=== PATIENT | male | born 1940 | race Caucasian/White ===

== ENCOUNTER 2016-11-25 00:25 | Outpatient (CLI) | payer MEDICARE, BC ==
[2016-11-25 08:07] LABS: ALT (SGPT) 6 U/L (8-55); AST (SGOT) 15 U/L (5-34); Albumin 3.8 g/dL (3.4-4.8); Alkaline Phosphatase 107 U/L (40-150); Anion Gap 14 mmol/L (10-20); BUN (Urea Nitrogen) 21 mg/dL (8.4-25.7); Bilirubin, Total 0.9 mg/dL (0.2-1.2); Calc. Creatinine Clearance 0 mL/min (70-130); Calcium 9.3 mg/dL (7.8-10.44); Carbon Dioxide 27 mmol/L (23-31); Chloride 98 mmol/L (98-107); Estimated GFR-MDRD 77; Globulin 2.2 g/dL (2.4-3.5); Glucose 77 mg/dL (83-110); Potassium 4.4 mmol/L (3.5-5.1); Sodium 135 mmol/L (136-145)
[2016-11-25 11:23] LABS: #Basophils 0.1 thou/uL (0.0-0.2); #Eosinphils 0.1 thou/uL (0.0-0.7); #Lymphocytes 1.8 thou/uL (1.20-3.40); #Neutrophils 5.5 thou/uL (1.40-6.50); %Basophils 0.8 % (0.0-1.0); %Eosinophils 1.2 % (0.0-10.0); %Monocytes 12.1 % (0.0-10.0); %Neutrophils 64.9 % (42.0-75.0); Hemoglobin 14.8 g/dL (14.0-18.0); Mean Corpuscular HGB CONC 36.3 g/dL (32.0-36.0); Mean Corpuscular Hemoglobin 34.8 pg (27.0-31.0); Mean Platelet Volume 5.8 fL (7.4-10.4); PLT Morphology Comment Appears Adequate; Platelet Count 187 thou/uL (130-400); RBC Distribution Width 12.1 % (11.5-14.5); RBC Morphology Normal; Red Blood Cell (RBC) Count 4.24 mill/uL (4.70-6.10); White Blood Cell (WBC) Count 8.4 thou/uL (4.8-10.8)
== END 2016-11-25 00:26 | disposition home or self-care (01) ==
LOC: BURMANOR 00:25 → EDSTATUS 21:12
PROVIDERS: ATTEND Clinical Nurse Specialist Medical-Surgical
DX: R55 Syncope and collapse (principal); I10 Essential (primary) hypertension
CPT/HCPCS: 36415; 80053; 85025

== ENCOUNTER 2016-12-16 15:26 | Inpatient (IN) | payer MEDICARE, BC, MEDICAID ==
[2016-12-16] MEDS ORDERED: Docusate (Surfak) 240 MG CAP PO PRN (21:58)
[2016-12-16] MEDS ORDERED: Acetaminophen 325 MG TAB PO PRN (21:58)
[2016-12-16] MEDS ORDERED: Ondansetron HCl/PF 4 MG/2 ML Vial IVPB PRN (21:58)
[2016-12-16] MEDS: Carbidopa/Levodopa CR 50-200 mg Tablet PO SCH (23:13)
[2016-12-17 05:14] LABS: Hemoglobin 13.4 g/dL (14.0-18.0); Platelet Count 186 thou/uL (130-400)
[2016-12-17 05:19] LABS: Calc. Creatinine Clearance 93 mL/min (70-130); Estimated GFR-MDRD Greater than 90
[2016-12-17] MEDS: Polyethylene Glycol 3350 17 GM Packet PO SCH (08:58)
[2016-12-17] MEDS: Enoxaparin Sodium 40 MG/0.4 ML SYRINGE SC SCH (08:58)
[2016-12-17] MEDS: Carbidopa/Levodopa CR 50-200 mg Tablet PO SCH ×4 (08:59→20:30)
[2016-12-17] MEDS: Furosemide 40 MG TAB PO SCH (08:59)
[2016-12-17] MEDS ORDERED: LEVODOPA PO SCH (09:00)
[2016-12-17] MEDS: Atorvastatin Calcium 10 MG TAB PO SCH (09:00)
[2016-12-17] MEDS ORDERED: CARBIDOPA PO SCH (09:00)
[2016-12-17] MEDS ORDERED: Ertapenem 1 GM VIAL IVPB SCH (09:00)
[2016-12-17] MEDS: rOPINIRole HCl 0.25 MG TAB PO SCH ×3 (09:00→20:16)
[2016-12-17] MEDS: Aspirin 81 mg Enteric Coated Tablet PO SCH (09:00)
[2016-12-17] MEDS ORDERED: Tamsulosin HCl 0.4 MG CAP PO SCH (09:00)
[2016-12-17] MEDS: Lisinopril 20 MG TAB PO SCH (09:01)
[2016-12-17] MEDS: Finasteride 5 MG TAB PO SCH (09:01)
[2016-12-17] MEDS: Ertapenem 1 GM in Sodium Chloride 0.9% 100 ML IVPB SCH (09:54)
[2016-12-17] MEDS: Nystatin Cream 15 GM TUBE TOP SCH ×2 (10:36→20:26)
[2016-12-17] MEDS: clonazePAM 0.5 MG TAB PO SCH (20:16)
[2016-12-17] MEDS ORDERED: clonazePAM 0.5 MG TAB PO SCH (21:00)
[2016-12-18] MEDS: Carbidopa/Levodopa CR 50-200 mg Tablet PO SCH ×5 (00:09→20:33)
[2016-12-18] MEDS: Enoxaparin Sodium 40 MG/0.4 ML SYRINGE SC SCH (08:53)
[2016-12-18] MEDS: Ertapenem 1 GM in Sodium Chloride 0.9% 100 ML IVPB SCH (08:53)
[2016-12-18] MEDS: Polyethylene Glycol 3350 17 GM Packet PO SCH (08:54)
[2016-12-18] MEDS: Lisinopril 20 MG TAB PO SCH (08:54)
[2016-12-18] MEDS: rOPINIRole HCl 0.25 MG TAB PO SCH ×3 (08:55→20:32)
[2016-12-18] MEDS: Atorvastatin Calcium 10 MG TAB PO SCH (08:56)
[2016-12-18] MEDS: Aspirin 81 mg Enteric Coated Tablet PO SCH (08:56)
[2016-12-18] MEDS: Finasteride 5 MG TAB PO SCH (08:56)
[2016-12-18] MEDS: Tamsulosin HCl 0.4 MG CAP PO SCH (08:56)
[2016-12-18] MEDS: Furosemide 40 MG TAB PO SCH (08:56)
[2016-12-18] MEDS: Nystatin Cream 15 GM TUBE TOP SCH ×2 (08:57→20:33)
[2016-12-18] MEDS ORDERED: Bisacodyl 10 MG SUPP PR PRN (12:29)
[2016-12-18] MEDS: clonazePAM 0.5 MG TAB PO SCH (20:32)
[2016-12-19] MEDS: Carbidopa/Levodopa CR 50-200 mg Tablet PO SCH ×6 (00:04→23:54)
[2016-12-19 05:16] LABS: Hemoglobin 12.9 g/dL (14.0-18.0); Platelet Count 175 thou/uL (130-400)
[2016-12-19] MEDS: Polyethylene Glycol 3350 17 GM Packet PO SCH (09:14)
[2016-12-19] MEDS: Enoxaparin Sodium 40 MG/0.4 ML SYRINGE SC SCH (09:14)
[2016-12-19] MEDS: Aspirin 81 mg Enteric Coated Tablet PO SCH (09:15)
[2016-12-19] MEDS: Tamsulosin HCl 0.4 MG CAP PO SCH (09:15)
[2016-12-19] MEDS: Furosemide 40 MG TAB PO SCH (09:15)
[2016-12-19] MEDS: Atorvastatin Calcium 10 MG TAB PO SCH (09:17)
[2016-12-19] MEDS: Finasteride 5 MG TAB PO SCH (09:17)
[2016-12-19] MEDS: rOPINIRole HCl 0.25 MG TAB PO SCH ×3 (09:17→20:09)
[2016-12-19] MEDS: Lisinopril 20 MG TAB PO SCH (09:17)
[2016-12-19] MEDS: Ertapenem 1 GM in Sodium Chloride 0.9% 100 ML IVPB SCH (09:18)
[2016-12-19] MEDS: Nystatin Cream 15 GM TUBE TOP SCH ×2 (09:19→20:08)
[2016-12-19] MEDS: clonazePAM 0.5 MG TAB PO SCH (20:08)
[2016-12-20] MEDS: Furosemide 40 MG TAB PO SCH (08:46)
[2016-12-20] MEDS: Carbidopa/Levodopa CR 50-200 mg Tablet PO SCH ×4 (08:46→21:17)
[2016-12-20] MEDS: Aspirin 81 mg Enteric Coated Tablet PO SCH (08:46)
[2016-12-20] MEDS: Tamsulosin HCl 0.4 MG CAP PO SCH (08:47)
[2016-12-20] MEDS: Atorvastatin Calcium 10 MG TAB PO SCH (08:47)
[2016-12-20] MEDS: Lisinopril 20 MG TAB PO SCH (08:48)
[2016-12-20] MEDS: Finasteride 5 MG TAB PO SCH (08:48)
[2016-12-20] MEDS: Enoxaparin Sodium 40 MG/0.4 ML SYRINGE SC SCH (08:49)
[2016-12-20] MEDS: rOPINIRole HCl 0.25 MG TAB PO SCH ×3 (08:49→21:17)
[2016-12-20] MEDS: Polyethylene Glycol 3350 17 GM Packet PO SCH (08:50)
[2016-12-20] MEDS: Ertapenem 1 GM in Sodium Chloride 0.9% 100 ML IVPB SCH (08:50)
[2016-12-20] MEDS: Nystatin Cream 15 GM TUBE TOP SCH ×2 (09:01→21:17)
[2016-12-20] MEDS: clonazePAM 0.5 MG TAB PO SCH (21:17)
[2016-12-21] MEDS: Carbidopa/Levodopa CR 50-200 mg Tablet PO SCH ×5 (00:51→20:22)
[2016-12-21 06:14] LABS: #Basophils 0.1 thou/uL (0.0-0.2); #Eosinphils 0.4 thou/uL (0.0-0.7); #Lymphocytes 1.7 thou/uL (1.20-3.40); #Monocytes 0.9 thou/uL (0.11-0.59); #Neutrophils 3.6 thou/uL (1.40-6.50); %Basophils 1.7 % (0.0-1.0); %Eosinophils 5.8 % (0.0-10.0); %Lymphocytes 25.5 % (21.0-51.0); %Monocytes 13.8 % (0.0-10.0); %Neutrophils 53.2 % (42.0-75.0); Hemoglobin 13.1 g/dL (14.0-18.0); Mean Corpuscular HGB CONC 33.9 g/dL (32.0-36.0); Mean Corpuscular Hemoglobin 32.6 pg (27.0-31.0); Mean Corpuscular Volume 96.2 fl (80.0-94.0); Mean Platelet Volume 5.6 fL (7.4-10.4); Platelet Count 181 thou/uL (130-400); RBC Distribution Width 12.1 % (11.5-14.5); Red Blood Cell (RBC) Count 4.03 mill/uL (4.70-6.10); White Blood Cell (WBC) Count 6.8 thou/uL (4.8-10.8)
[2016-12-21 06:22] LABS: ALT (SGPT) Less than 3 U/L (8-55); AST (SGOT) 11 U/L (5-34); Albumin 3.5 g/dL (3.4-4.8); Alkaline Phosphatase 165 U/L (40-150); Anion Gap 13 mmol/L (10-20); BUN (Urea Nitrogen) 26 mg/dL (8.4-25.7); Bilirubin, Total 0.6 mg/dL (0.2-1.2); Calc. Creatinine Clearance 70 mL/min (70-130); Calcium 9.1 mg/dL (7.8-10.44); Carbon Dioxide 25 mmol/L (23-31); Chloride 102 mmol/L (98-107); Estimated GFR-MDRD 68; Globulin 2.4 g/dL (2.4-3.5); Glucose 88 mg/dL (83-110); Potassium 4.2 mmol/L (3.5-5.1); Protein, Total 5.9 g/dL (5.8-8.1); Sodium 136 mmol/L (136-145)
[2016-12-21 06:35] VITALS: BMI 27.8
[2016-12-21] MEDS: Tamsulosin HCl 0.4 MG CAP PO SCH (08:51)
[2016-12-21] MEDS: Ertapenem 1 GM in Sodium Chloride 0.9% 100 ML IVPB SCH (08:51)
[2016-12-21] MEDS: Furosemide 40 MG TAB PO SCH (08:52)
[2016-12-21] MEDS: Aspirin 81 mg Enteric Coated Tablet PO SCH (08:52)
[2016-12-21] MEDS: Finasteride 5 MG TAB PO SCH (08:53)
[2016-12-21] MEDS: Lisinopril 20 MG TAB PO SCH (08:54)
[2016-12-21] MEDS: Atorvastatin Calcium 10 MG TAB PO SCH (08:54)
[2016-12-21] MEDS: Enoxaparin Sodium 40 MG/0.4 ML SYRINGE SC SCH (08:55)
[2016-12-21] MEDS: Polyethylene Glycol 3350 17 GM Packet PO SCH (08:55)
[2016-12-21] MEDS: Nystatin Cream 15 GM TUBE TOP SCH ×2 (09:02→20:23)
[2016-12-21] MEDS: rOPINIRole HCl 0.25 MG TAB PO SCH ×3 (09:34→20:22)
[2016-12-21] MEDS: Calcium Carbonate 500 MG ChewTAB PO PRN (20:22)
[2016-12-21] MEDS: clonazePAM 0.5 MG TAB PO SCH (20:22)
[2016-12-22] MEDS: Carbidopa/Levodopa CR 50-200 mg Tablet PO SCH ×5 (01:03→21:51)
[2016-12-22] MEDS: Calcium Carbonate 500 MG ChewTAB PO PRN (01:03)
[2016-12-22] MEDS: Tamsulosin HCl 0.4 MG CAP PO SCH (09:19)
[2016-12-22] MEDS: Lisinopril 20 MG TAB PO SCH (09:19)
[2016-12-22] MEDS: Furosemide 40 MG TAB PO SCH (09:19)
[2016-12-22] MEDS: Aspirin 81 mg Enteric Coated Tablet PO SCH (09:20)
[2016-12-22] MEDS: Atorvastatin Calcium 10 MG TAB PO SCH (09:20)
[2016-12-22] MEDS: Enoxaparin Sodium 40 MG/0.4 ML SYRINGE SC SCH (09:20)
[2016-12-22] MEDS: Ertapenem 1 GM in Sodium Chloride 0.9% 100 ML IVPB SCH (09:21)
[2016-12-22] MEDS: Polyethylene Glycol 3350 17 GM Packet PO SCH (09:22)
[2016-12-22] MEDS: Nystatin Cream 15 GM TUBE TOP SCH ×2 (09:22→21:51)
[2016-12-22] MEDS: Finasteride 5 MG TAB PO SCH (09:22)
[2016-12-22] MEDS: rOPINIRole HCl 0.25 MG TAB PO SCH ×3 (09:23→21:51)
[2016-12-22] MEDS: clonazePAM 0.5 MG TAB PO SCH (21:51)
[2016-12-23] MEDS: Carbidopa/Levodopa CR 50-200 mg Tablet PO SCH ×6 (00:15→23:40)
[2016-12-23 05:20] LABS: Hemoglobin 13.1 g/dL (14.0-18.0); Platelet Count 195 thou/uL (130-400)
[2016-12-23] MEDS: Aspirin 81 mg Enteric Coated Tablet PO SCH (09:30)
[2016-12-23] MEDS: Ertapenem 1 GM in Sodium Chloride 0.9% 100 ML IVPB SCH (09:31)
[2016-12-23] MEDS: Polyethylene Glycol 3350 17 GM Packet PO SCH (09:31)
[2016-12-23] MEDS: Enoxaparin Sodium 40 MG/0.4 ML SYRINGE SC SCH (09:31)
[2016-12-23] MEDS: Furosemide 40 MG TAB PO SCH (09:32)
[2016-12-23] MEDS: Atorvastatin Calcium 10 MG TAB PO SCH (09:33)
[2016-12-23] MEDS: Finasteride 5 MG TAB PO SCH (09:33)
[2016-12-23] MEDS: Lisinopril 20 MG TAB PO SCH (09:33)
[2016-12-23] MEDS: Tamsulosin HCl 0.4 MG CAP PO SCH (09:33)
[2016-12-23] MEDS: rOPINIRole HCl 0.25 MG TAB PO SCH ×3 (09:35→21:03)
[2016-12-23] MEDS: Nystatin Cream 15 GM TUBE TOP SCH ×2 (10:16→21:04)
[2016-12-23] MEDS: clonazePAM 0.5 MG TAB PO SCH (21:02)
[2016-12-24] MEDS: Carbidopa/Levodopa CR 50-200 mg Tablet PO SCH ×4 (09:25→20:51)
[2016-12-24] MEDS: Furosemide 40 MG TAB PO SCH (09:25)
[2016-12-24] MEDS: Aspirin 81 mg Enteric Coated Tablet PO SCH (09:26)
[2016-12-24] MEDS: Atorvastatin Calcium 10 MG TAB PO SCH (09:26)
[2016-12-24] MEDS: Lisinopril 20 MG TAB PO SCH (09:26)
[2016-12-24] MEDS: Tamsulosin HCl 0.4 MG CAP PO SCH (09:26)
[2016-12-24] MEDS: Enoxaparin Sodium 40 MG/0.4 ML SYRINGE SC SCH (09:27)
[2016-12-24] MEDS: Ertapenem 1 GM in Sodium Chloride 0.9% 100 ML IVPB SCH (09:27)
[2016-12-24] MEDS: Finasteride 5 MG TAB PO SCH (09:28)
[2016-12-24] MEDS: Nystatin Cream 15 GM TUBE TOP SCH ×2 (09:28→20:51)
[2016-12-24] MEDS: Polyethylene Glycol 3350 17 GM Packet PO SCH (09:29)
[2016-12-24] MEDS: rOPINIRole HCl 0.25 MG TAB PO SCH ×3 (09:29→20:53)
[2016-12-24] MEDS: clonazePAM 0.5 MG TAB PO SCH (20:51)
[2016-12-25] MEDS: Carbidopa/Levodopa CR 50-200 mg Tablet PO SCH ×6 (00:21→23:38)
[2016-12-25 07:09] LABS: Hemoglobin 12.7 g/dL (14.0-18.0); Platelet Count 197 thou/uL (130-400)
[2016-12-25] MEDS: Aspirin 81 mg Enteric Coated Tablet PO SCH (09:36)
[2016-12-25] MEDS: Furosemide 40 MG TAB PO SCH (09:36)
[2016-12-25] MEDS: Atorvastatin Calcium 10 MG TAB PO SCH (09:37)
[2016-12-25] MEDS: Enoxaparin Sodium 40 MG/0.4 ML SYRINGE SC SCH (09:37)
[2016-12-25] MEDS: Ertapenem 1 GM in Sodium Chloride 0.9% 100 ML IVPB SCH (09:37)
[2016-12-25] MEDS: Tamsulosin HCl 0.4 MG CAP PO SCH (09:38)
[2016-12-25] MEDS: Lisinopril 20 MG TAB PO SCH (09:38)
[2016-12-25] MEDS: Finasteride 5 MG TAB PO SCH (09:38)
[2016-12-25] MEDS: Polyethylene Glycol 3350 17 GM Packet PO SCH (09:40)
[2016-12-25] MEDS: rOPINIRole HCl 0.25 MG TAB PO SCH ×3 (09:40→21:07)
[2016-12-25] MEDS: Nystatin Cream 15 GM TUBE TOP SCH ×2 (09:40→23:39)
[2016-12-25] MEDS: clonazePAM 0.5 MG TAB PO SCH (21:07)
[2016-12-26] MEDS: Carbidopa/Levodopa CR 50-200 mg Tablet PO SCH ×5 (08:00→20:05)
[2016-12-26] MEDS: Furosemide 40 MG TAB PO SCH (08:00)
[2016-12-26] MEDS: Ertapenem 1 GM in Sodium Chloride 0.9% 100 ML IVPB SCH (08:33)
[2016-12-26] MEDS: rOPINIRole HCl 0.25 MG TAB PO SCH ×3 (08:37→20:05)
[2016-12-26] MEDS: Lisinopril 20 MG TAB PO SCH (08:39)
[2016-12-26] MEDS: Tamsulosin HCl 0.4 MG CAP PO SCH (08:39)
[2016-12-26] MEDS: Atorvastatin Calcium 10 MG TAB PO SCH (08:40)
[2016-12-26] MEDS: Finasteride 5 MG TAB PO SCH (08:41)
[2016-12-26] MEDS: Polyethylene Glycol 3350 17 GM Packet PO SCH (08:41)
[2016-12-26] MEDS: Enoxaparin Sodium 40 MG/0.4 ML SYRINGE SC SCH (08:42)
[2016-12-26] MEDS: Nystatin Cream 15 GM TUBE TOP SCH ×2 (08:45→20:06)
[2016-12-26] MEDS: Aspirin 81 mg Enteric Coated Tablet PO SCH (08:45)
[2016-12-26] MEDS: clonazePAM 0.5 MG TAB PO SCH (20:05)
[2016-12-26] MEDS ORDERED: clonazePAM 0.5 MG TAB PO SCH (20:30)
[2016-12-27] MEDS: Carbidopa/Levodopa CR 50-200 mg Tablet PO SCH ×6 (01:09→23:49)
[2016-12-27 06:17] LABS: Hemoglobin 12.9 g/dL (14.0-18.0); Platelet Count 191 thou/uL (130-400)
[2016-12-27] MEDS: Ertapenem 1 GM in Sodium Chloride 0.9% 100 ML IVPB SCH (08:09)
[2016-12-27] MEDS: Lisinopril 20 MG TAB PO SCH (08:25)
[2016-12-27] MEDS: Finasteride 5 MG TAB PO SCH (08:26)
[2016-12-27] MEDS: Furosemide 40 MG TAB PO SCH (08:26)
[2016-12-27] MEDS: Tamsulosin HCl 0.4 MG CAP PO SCH (08:27)
[2016-12-27] MEDS: Atorvastatin Calcium 10 MG TAB PO SCH (08:27)
[2016-12-27] MEDS: Polyethylene Glycol 3350 17 GM Packet PO SCH (08:27)
[2016-12-27] MEDS: rOPINIRole HCl 0.25 MG TAB PO SCH ×3 (08:30→20:45)
[2016-12-27] MEDS: Aspirin 81 mg Enteric Coated Tablet PO SCH (08:32)
[2016-12-27] MEDS: Enoxaparin Sodium 40 MG/0.4 ML SYRINGE SC SCH (08:33)
[2016-12-27] MEDS: Nystatin Cream 15 GM TUBE TOP SCH ×2 (08:36→20:45)
[2016-12-27] MEDS: clonazePAM 0.5 MG TAB PO SCH (20:44)
[2016-12-27 20:53] VITALS: TEMP 98.3
[2016-12-28] MEDS: Polyethylene Glycol 3350 17 GM Packet PO SCH (08:32)
[2016-12-28] MEDS: Enoxaparin Sodium 40 MG/0.4 ML SYRINGE SC SCH (08:32)
[2016-12-28] MEDS: Lisinopril 20 MG TAB PO SCH (08:33)
[2016-12-28] MEDS: rOPINIRole HCl 0.25 MG TAB PO SCH ×2 (08:33→14:28)
[2016-12-28] MEDS: Carbidopa/Levodopa CR 50-200 mg Tablet PO SCH ×2 (08:33→12:19)
[2016-12-28] MEDS: Tamsulosin HCl 0.4 MG CAP PO SCH (08:38)
[2016-12-28] MEDS: Furosemide 40 MG TAB PO SCH (08:38)
[2016-12-28] MEDS: Atorvastatin Calcium 10 MG TAB PO SCH (08:38)
[2016-12-28] MEDS: Ertapenem 1 GM in Sodium Chloride 0.9% 100 ML IVPB SCH (08:38)
[2016-12-28] MEDS: Finasteride 5 MG TAB PO SCH (08:38)
[2016-12-28 08:39] VITALS: BP 120/78
[2016-12-28] MEDS: Aspirin 81 mg Enteric Coated Tablet PO SCH (08:39)
[2016-12-28] MEDS: Nystatin Cream 15 GM TUBE TOP SCH (08:40)
== END 2016-12-28 14:58 | DRG 690 ==
LOC: BURMED 18:30
PROVIDERS: ADMIT Family Medicine; ATTEND Family Medicine
DX: N39.0 Urinary tract infection, site not specified (principal); G20 Parkinson's disease; I11.0 Hypertensive heart disease with heart failure; I50.42 Chronic combined systolic (congestive) and diastolic (congestive) heart failure; Z95.0 Presence of cardiac pacemaker; I25.10 Atherosclerotic heart disease of native coronary artery without angina pectoris; Z95.1 Presence of aortocoronary bypass graft; K21.9 Gastro-esophageal reflux disease without esophagitis; M10.9 Gout, unspecified; E78.00 Pure hypercholesterolemia, unspecified; I65.21 Occlusion and stenosis of right carotid artery; Z79.82 Long term (current) use of aspirin; Z87.891 Personal history of nicotine dependence; R21 Rash and other nonspecific skin eruption; N40.0 Benign prostatic hyperplasia without lower urinary tract symptoms; Z16.24 Resistance to multiple antibiotics
CPT/HCPCS: 36415; 80053; 82565; 85014; 85018; 85025; 85049; A4216; C1751; G8978-GP-CI; G8979-GP-CI; G8987-GO-CJ; G8988-GO-CJ; G8989-GO-CJ; J1335; J1650; J2405; J7050

== ENCOUNTER 2019-01-12 10:03 | Outpatient (CLI) | payer MEDICARE, BC ==
--- NOTE | 2019-01-12 17:50 | RAD ---
RIGHT ELBOW FOUR VIEWS: 01/12/19 No acute fracture was seen. There is no joint effusion. A small bony ossicle on the lateral aspect of the distal humerus is probably due to old trauma. IMPRESSION: No acute findings. POS: HOME
== END 2019-01-12 10:04 | disposition home or self-care (01) ==
LOC: BURRAD 10:03
PROVIDERS: ATTEND Nurse Practitioner Family
DX: M25.50 Pain in unspecified joint (principal)

== ENCOUNTER 2020-12-07 10:44 | Outpatient (CLI) | payer MEDICARE, BC, OTHER | END 2020-12-07 10:45 | disposition home or self-care (01) | LOC: BURRAD 10:44 | PROVIDERS: ATTEND Family Medicine | DX: M25.532 Pain in left wrist (principal); M19.032 Primary osteoarthritis, left wrist ==

== ENCOUNTER 2021-07-14 12:40 | Outpatient (CLI) | payer MEDICARE, MEDICAID | END 2021-07-14 12:41 | disposition home or self-care (01) | LOC: BURMANOR 12:40 | PROVIDERS: ATTEND Nurse Practitioner Family | DX: R19.7 Diarrhea, unspecified (principal) | CPT/HCPCS: 87804 ==

== ENCOUNTER 2021-11-13 17:42 | Outpatient (CLI) | payer MEDICARE, MEDICAID ==
[2021-11-13 17:56] LABS: Bilirubin Negative (Negative); Blood, Urine Negative (Negative); Clarity Slightly Cloudy (Clear); Glucose, Urine (Dipstick) Negative (Negative); Ketone, Urine Trace mg/dL (Negative); Leukocyte Trace (Negative); Nitrite Positive (Negative); Protein, Urine (Dipstick) Negative (Neg-Trace); pH, Urine 5.5 (5.0-9.0)
[2021-11-13 18:20] LABS: Bacteria/HPF 2+ HPF (None Seen); RBC/HPF 0-3 HPF (0-3); Squamous Epithelial 0-3 HPF (0-3)
== END 2021-11-13 17:43 | disposition home or self-care (01) ==
LOC: BURLABSP 17:42 → BURMANOR 17:43
PROVIDERS: ATTEND Nurse Practitioner Family
DX: N39.0 Urinary tract infection, site not specified (principal)
CPT/HCPCS: 81003; 81015; 87077; 87086; 87186

== ENCOUNTER 2021-12-09 16:10 | Outpatient (CLI) | payer MEDICARE, OTHER ==
[2021-12-09 16:20] LABS: Bilirubin Negative (Negative); Blood, Urine Negative (Negative); Clarity Clear (Clear); Glucose, Urine (Dipstick) Negative (Negative); Ketone, Urine Trace mg/dL (Negative); Leukocyte Negative (Negative); Nitrite Negative (Negative); Protein, Urine (Dipstick) Negative (Neg-Trace); Specific Gravity, Urine 1.015 (1.005-1.030); Urobilinogen 0.2 mg/dL (Less than 2)
== END 2021-12-09 16:11 | disposition home or self-care (01) ==
LOC: BURMANOR 16:10
PROVIDERS: ATTEND Nurse Practitioner Family
DX: N39.0 Urinary tract infection, site not specified (principal)
CPT/HCPCS: 81003; 87086

== ENCOUNTER 2022-01-11 21:00 | Outpatient (CLI) | payer MEDICARE, OTHER ==
[2022-01-12 07:43] LABS: Bilirubin Moderate (Negative); Blood, Urine Negative (Negative); Clarity Clear (Clear); Glucose, Urine (Dipstick) Negative (Negative); Ketone, Urine 15 mg/dL (Negative); Leukocyte Negative (Negative); Nitrite Negative (Negative); Protein, Urine (Dipstick) Negative (Neg-Trace)
[2022-01-12 07:44] LABS: Specific Gravity, Urine 1.026 (1.002-1.036)
== END 2022-01-11 21:01 | disposition home or self-care (01) ==
LOC: BURMANOR 21:00
PROVIDERS: ATTEND Family Medicine
DX: N39.0 Urinary tract infection, site not specified (principal)
CPT/HCPCS: 81003